=== PATIENT | male | born 1980 | race Caucasian/White ===

== ENCOUNTER 2016-11-08 15:19 | Emergency (ER) | payer OTHER | END 2016-11-08 17:20 | disposition home or self-care (01) | LOC: FER 15:19 | DX: J10.2 Influenza due to other identified influenza virus with gastrointestinal manifestations (principal); G25.81 Restless legs syndrome; F17.210 Nicotine dependence, cigarettes, uncomplicated; Z79.899 Other long term (current) drug therapy | CPT/HCPCS: 87804; 87899; J1885 ==

== ENCOUNTER 2017-04-30 17:14 | Emergency (ER) | payer OTHER | END 2017-04-30 19:50 | disposition home or self-care (01) | LOC: FER 17:14 | DX: S39.012A Strain of muscle, fascia and tendon of lower back, initial encounter (principal); S30.0XXA Contusion of lower back and pelvis, initial encounter; W01.0XXA Fall on same level from slipping, tripping and stumbling without subsequent striking against object, initial encounter; Y92.828 Other wilderness area as the place of occurrence of the external cause | CPT/HCPCS: 72220; J1100 ==

== ENCOUNTER 2021-02-13 02:25 | Emergency (ER) | payer OTHER ==
[~2021-02-13 02:25] MED LIST: FLEXERIL10 MG PO; IBUPROFEN800 MG PO; MEDROL 4MG DOSEP4 MG PO; NORCO 5-325 TA1 EACH PO
[2021-02-13] MEDS ORDERED: IBUPROFEN800 MG PO (05:19)
[2021-02-13] MEDS ORDERED: PERCOCET 5-3251 EACH PO (05:19)
== END 2021-02-13 05:50 | disposition home or self-care (01) ==
LOC: FER 02:25
DX: M79.661 Pain in right lower leg (principal); I10 Essential (primary) hypertension; F17.210 Nicotine dependence, cigarettes, uncomplicated
CPT/HCPCS: 73590; J1885

== ENCOUNTER 2021-06-17 10:52 | Emergency (ER) | payer OTHER ==
[~2021-06-17 10:52] MED LIST changes: +PERCOCET 5-3251 EACH PO
[2021-06-17 12:05] LABS: CORONAVIRUS 2019 SARS-COV-2 NEGATIVE (NEGATIVE); INFLUENZA A NAA NEGATIVE (NEGATIVE)
== END 2021-06-17 12:53 | disposition home or self-care (01) ==
LOC: FER 10:52
PROVIDERS: Emergency Medicine
DX: B34.9 Viral infection, unspecified (principal); Z20.822 Contact with and (suspected) exposure to COVID-19
CPT/HCPCS: 99283; J1885; U0002